=== PATIENT | male | born 1960 | race Caucasian/White ===

== ENCOUNTER 2018-01-10 13:07 | Observation (INO) | payer BC, SELFPAY ==
--- NOTE | 2018-01-10 13:51 | RAD REPORT ---
EXAM DESCRIPTION: CT - Head Brain Wo Cont - 01/10/2018 1:36 pm CLINICAL HISTORY: SYNCOPE Seizure COMPARISON: Chest Single View dated 01/10/2018 TECHNIQUE: All CT scans are performed using dose optimization technique as appropriate and may inclu de automated exposure control or mA/KV adjustment according to patient size. FINDINGS: No intracranial hemorrhage, hydrocephalus or extra-axial fluid collection.No areas of brai n edema or evidence of midline shift. The paranasal sinuses and mastoids are clear. The calvarium is intact. IMPRESSION: No acute intracranial abnormality.
--- NOTE | 2018-01-10 13:53 | RAD REPORT ---
EXAM DESCRIPTION: RAD - Chest Single View - 01/10/2018 1:41 pm CLINICAL HISTORY: syncope Chest pain. COMPARISON: No comparisons FINDINGS: Portable technique limits examination quality. The lungs are grossly clear. The heart is normal in size. No displaced fractures. IMPRESSION: No acute intrathoracic process suspected.
[2018-01-10 14:46] LABS: Absolute Lymphocytes (CBC) 0.9 K/uL (0.7-4.9); Absolute Monocytes 0.3 K/uL (0.1-1.3); Absolute Neutrophil 4.7 K/uL (1.8-8.0); Basophils % 0.3 % (0-1.3); Eosinophils % 0.7 % (0-4.4); Hematocrit 43.7 % (39.6-49.0); Lymphocytes % 15.4 % (15.3-44.8); MCH 34.1 pg (27.0-35.0); MCV 99.2 fL (80-100); MPV 7.8 fL (7.6-11.3); Monocytes % 4.3 % (3.3-12.3)
[2018-01-10 14:49] LABS: Protime INR 1.16
[2018-01-10 15:00] LABS: ALT/SGPT 50 U/L (12-78); AST/SGOT 103 U/L (15-37); Albumin 3.7 g/dL (3.4-5.0); Alkaline Phosphatase 88 U/L (45-117); BUN Blood Urea Nitrogen 5 mg/dL (7-18); Bicarbonate 27 mmol/L (21-32); Bilirubin Direct 0.3 mg/dL (0-0.2); Bilirubin Total 0.6 mg/dL (0.2-1.0); CKMB Creatine Kinase MB < 1.0 ng/mL (0.3-3.6); Creatine Phosphokinase 45 U/L (39-308); Glucose Level 109 mg/dL (74-106); NT PRO-BNP 23 pg/mL (<125); Potassium 3.2 mmol/L (3.5-5.1); Protein, Total 8.8 g/dL (6.4-8.2); Sodium Level 136 mmol/L (136-145)
--- NOTE | 2018-01-10 15:03 | RAD REPORT ---
EXAM DESCRIPTION: VAS - Extrem Venous W Compress Neno - 01/10/2018 2:17 pm CLINICAL HISTORY: SWELLING Bilateral leg edema and swelling. COMPARISON: <Comparisons> TECHNIQUE: Real-time sonographic interrogation of the left and right lower extremity deep venous sys tems was performed. FINDINGS: Normal compressibility, flow augmentation, phasic flow and spontaneous flow is identified in both the left and right lower extremity deep venous systems. IMPRESSION: No sonographic evidence of left or right lower extremity deep venous thrombosis.
[2018-01-10] MEDS ORDERED: NA CHLORIDE 0.9% 500 ML ONE (15:16)
[2018-01-10] MEDS ORDERED: CLINDAMYCIN 900MG/D5W 900 MG/50 ML BAG IV ONE (15:16)
[2018-01-10] MEDS ORDERED: POTASSIUM 25 MEQ EFFERV TAB ONE (15:16)
[2018-01-10 15:18] LABS: Urine Blood NEGATIVE (NEG); Urine Glucose NEGATIVE (NEG); Urine Protein NEGATIVE (NEG)
[2018-01-10] MEDS ORDERED: IBUPROFEN 400 MG TAB ONE (15:32)
--- NOTE | 2018-01-10 16:52 | EDPHYS ---
Physician Documentation [facility] Name: Modesto Walls Age: 57 yrs Sex: Male : 1960 Arrival Date: 01/10/2018 Time: 13:10 Bed 24 Private MD: ED Physician Montana Pond HPI: 01/10 13:39 This 57 yrs old Male presents to ER via EMS with complaints of Syncope - Seizure. snw 13:39 The patient has experienced syncope, collapsed. Onset: The symptoms/episode snw began/occurred suddenly, just prior to arrival. Duration: This was a single episode, that lasted an unknown period of time. Context: the episode(s) was witnessed, by family, sister, occurred at a relative's home, occurred while the patient was standing, Just prior to the episode the patient experienced no apparent symptoms. Associated signs and symptoms: The patient has no apparent associated signs or symptoms. Current symptoms: headache. It is unknown whether or not the patient has had similar symptoms in the past. The patient has not recently seen a physician. 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 - Social history:: Smoking status: Patient/guardian denies using tobacco. - Ebola Screening: : No symptoms or risks identified at this time. ROS: 13:39 Constitutional: Negative for fever, chills, and weight loss, Eyes: Negative for injury, snw pain, redness, and discharge, ENT: Negative for injury, pain, and discharge, Neck: Negative for injury, pain, and swelling, Cardiovascular: Negative for chest pain, palpitations, and edema, Respiratory: Negative for shortness of breath, cough, wheezing, and pleuritic chest pain, Abdomen/GI: Negative for abdominal pain, nausea, vomiting, diarrhea, and constipation, Back: Negative for injury and pain, : Negative for injury, bleeding, discharge, and swelling, MS/Extremity: Negative for injury and deformity, Skin: Negative for injury, rash, and discoloration. 13:39 Neuro: Positive for headache, seizure activity, syncope. Exam: 13:32 Constitutional: This is a well developed, well nourished patient who is awake, alert, snw and in no acute distress. Head/Face: Normocephalic, atraumatic. Eyes: Pupils equal round and reactive to light, extra-ocular motions intact. Lids and lashes normal. Conjunctiva and sclera are non-icteric and not injected. Cornea within normal limits. Periorbital areas with no swelling, redness, or edema. ENT: Nares patent. No nasal discharge, no septal abnormalities noted. Tympanic membranes are normal and external auditory canals are clear. Oropharynx with no redness, swelling, or masses, exudates, or evidence of obstruction, uvula midline. Mucous membranes moist. Neck: Trachea midline, no thyromegaly or masses palpated, and no cervical lymphadenopathy. Supple, full range of motion without nuchal rigidity, or vertebral point tenderness. No Meningismus. Chest/axilla: Normal chest wall appearance and motion. Nontender with no deformity. No lesions are appreciated. Cardiovascular: Regular rate and rhythm with a normal S1 and S2. No gallops, murmurs, or rubs. Normal PMI, no JVD. No pulse deficits. Respiratory: Lungs have equal breath sounds bilaterally, clear to auscultation and percussion. No rales, rhonchi or wheezes noted. No increased work of breathing, no retractions or nasal flaring. Abdomen/GI: Soft, non-tender, with normal bowel sounds. No distension or tympany. No guarding or rebound. No evidence of tenderness throughout. Back: No spinal tenderness. No costovertebral tenderness. Full range of motion. Neuro: Awake and alert, GCS 15, oriented to person, place, time, and situation. Cranial nerves II-XII grossly intact. Motor strength 5/5 in all extremities. Sensory grossly intact. Cerebellar exam normal. Normal gait. 13:32 Skin: Appearance: Temperature: warm, erythema to left lateral ankle, + lymphedema to bilateral lower ext. Vital Signs: 13:11 BP 113 / 74; Pulse 83; Resp 18; Temp 97.7; Pulse Ox 99% ; Weight 81.65 kg; Height 5 ft. kr2 11 in. (180.34 cm); Pain 5/10; 13:53 BP 108 / 78; Pulse 97; Resp 17; Pulse Ox 100% on R/A; kr2 15:43 BP 107 / 76; Pulse 81; Resp 17; Pulse Ox 100% on R/A; kr2 18:30 BP 114 / 87; Pulse 88; Resp 15; Pulse Ox 97% on R/A; kr2 19:35 BP 113 / 79; Pulse 80; Resp 17; Temp 97.9(O); Pulse Ox 100% on R/A; kr2 13:11 Body Mass Index 25.10 (81.65 kg, 180.34 cm) kr2 MDM: 13:11 Patient medically screened. snw 16:51 Data reviewed: vital signs, nurses notes. Data interpreted: Pulse oximetry: on room air snw is 100 %. Interpretation: normal. Counseling: I had a detailed discussion with the patient and/or guardian regarding: the historical points, exam findings, and any diagnostic results supporting the discharge/admit diagnosis, lab results, radiology results, the need for further work-up and treatment in the hospital. Physician consultation: Durga Wilson DO was called at 16:52, was contacted at 16:52, regarding admission, to the telemetry unit. and will see patient in ED. 01/10 13:13 Order name: Basic Metabolic Panel; Complete Time: 15:w 01/10 13:13 Order name: CBC with Diff; Complete Time: 14:58 w 01/10 13:13 Order name: Ckmb; Complete Time: 15:w 01/10 13:13 Order name: CPK; Complete Time: 15:w 01/10 13:13 Order name: LFT's; Complete Time: 15:w 01/10 13:13 Order name: Magnesium; Complete Time: 15:w 01/10 13:13 Order name: NT PRO-BNP; Complete Time: 15:w 01/10 13:13 Order name: PT-INR; Complete Time: 14:58 w 01/10 13:13 Order name: Ptt, Activated; Complete Time: 14:58 w 01/10 13:13 Order name: Troponin (emerg Dept Use Only); Complete Time: 14:58 [facility] 01/10 13:13 Order name: Blood Culture Adult (2) [facility] 01/10 13:13 Order name: Lactate; Complete Time: 15:02 [facility] 01/10 15:04 Order name: Urine Dipstick--Ancillary (enter results); Complete Time: 15:20 eb 01/10 16:50 Order name: Procalcitonin; Complete Time: 17:39 [facility] 01/10 13:13 Order name: XRAY Chest (1 view); Complete Time: 13:57 [facility] 01/10 13:13 Order name: EKG; Complete Time: 13:14 [facility] 01/10 13:13 Order name: CT Head Brain wo Cont; Complete Time: 13:57 [facility] 01/10 13:13 Order name: US Extremity Venous W Compression Neno; Complete Time: 15:05 [facility] 01/10 17:11 Order name: CKMB Creatine Kinase MB [facility] 01/10 17:11 Order name: CKMB Creatine Kinase MB [facility] 01/10 17:11 Order name: CONS Physician Consult [facility] 01/10 17:11 Order name: Heart Healthy [facility] 01/10 17:11 Order name: Creatine Phosphokinase [facility] 01/10 17:11 Order name: Troponin I [facility] 01/10 17:15 Order name: Diet Heart Healthy; Complete Time: 17:15 [facility] 01/10 18:32 Order name: Lactate Sepsis 2 HR Follow-up; Complete Time: 18:33 [facility] 01/10 13:13 Order name: Cardiac monitoring; Complete Time: 13:41 [facility] 01/10 13:13 Order name: EKG - Nurse/Tech; Complete Time: 13:50 [facility] 01/10 13:13 Order name: IV Saline Lock; Complete Time: 13:41 [facility] 01/10 13:13 Order name: Labs collected and sent; Complete Time: 14:34 [facility] 01/10 13:13 Order name: O2 Per Protocol; Complete Time: 13:41 [facility] 01/10 13:13 Order name: O2 Sat Monitoring; Complete Time: 13:41 [facility] 01/10 13:13 Order name: Urine Dipstick-Ancillary (obtain specimen); Complete Time: 15:27 snw Administered Medications: 15:25 Drug: Clindamycin 900 mg Route: IVPB; Infused Over: 30 mins; Site: left antecubital; kr2 16:00 Follow up: Response: No adverse reaction; IV Status: Completed infusion kr2 15:26 Drug: NS 0.9% 500 ml Route: IV; Rate: bolus; Site: left antecubital; kr2 16:30 Follow up: Response: No adverse reaction; IV Status: Completed infusion kr2 15:27 Drug: K-Lyte Effervescent Tablet 50 mEq Route: PO; kr2 19:47 Follow up: Response: No adverse reaction kr2 15:30 Drug: Motrin 400 mg Route: PO; kr2 19:47 Follow up: Response: No adverse reaction; Pain is decreased kr2 Point of Care Testing: Blood Glucose: 14:15 Blood Glucose: 105 mg/dL; kr2 Ranges: Critical Glucose Levels:Adult <50 mg/dl or >400 mg/dl <40 mg/dl or >180 mg/dl Disposition: 01/11 07:11 Co-signature as Attending Physician, Montana Pond MD I agree with the assessment and kdr plan of care. Disposition: 01/10/18 16:51 Hospitalization ordered by Durga Wilson for Observation. Preliminary diagnosis are Cellulitis of right lower limb, Syncope and collapse, Hypokalemia. - Bed requested for Telemetry/MedSurg (observation). - Status is Observation. kr2 - Condition is Stable. - Problem is an acute exacerbation. - Symptoms have improved. UTI on Admission? No Signatures: Dispatcher [employer] EDMS Montana Pond MD MD [facility] Kady Nicolas, OIL DRILLER-C OIL DRILLER-CsnChery Oropeza RN RN sean2 Tran Lopez Corrections: (The following items were deleted from the chart) 01/10 18:31 16:51 Hospitalization Ordered by Durga Wilson DO for Observation. Preliminary eb diagnosis is Cellulitis of right lower limb; Syncope and collapse; Hypokalemia. Bed requested for Telemetry/MedSurg (observation). Status is Observation. Condition is Stable. Problem is an acute exacerbation. Symptoms have improved. UTI on Admission? No. snw 19:52 18:31 01/10/2018 16:51 Hospitalization Ordered by Durga Wilson DO for Observation. kr2 Preliminary diagnosis is Cellulitis of right lower limb; Syncope and collapse; Hypokalemia. Bed requested for Telemetry/MedSurg (observation). Status is Observation. Condition is Stable. Problem is an acute exacerbation. Symptoms have improved. UTI on Admission? No. eb
--- NOTE | 2018-01-10 16:52 | ER ---
Nurse's Notes [facility] Name: Modesto Walls Age: 57 yrs Sex: Male : 1960 Arrival Date: 01/10/2018 Time: 13:10 Bed 24 Private MD: Diagnosis: Cellulitis of right lower limb;Syncope and collapse;Hypokalemia Presentation: 01/10 13:11 Presenting complaint: EMS states: patient was at his sister's store when he had a kr2 syncopal episode and started having a seizure. By the time we got there he was A\T\Ox4 but his blood pressure dropped to 60/40. We started and IV and fluids and his blood pressure came up to 90/50. He had a fall 1 week ago, hit his head, had a CT at the hospital, he does have a hematoma from that fall. His sister reports she caught him before he hit his head this time. Transition of care: patient was not received from another setting of care. Onset of symptoms was January 10, 2018. Risk Assessment: Do you want to hurt yourself or someone else? Patient reports no desire to harm self or others. Initial Sepsis Screen: Does the patient meet any 2 criteria? No. Patient's initial sepsis screen is negative. Does the patient have a suspected source of infection? No. Patient's initial sepsis screen is negative. Care prior to arrival: Medication(s) given: Normal saline infusion, 800mL IV initiated. 20 GA, in the left antecubital area, Glucose check: 109. 13:11 Method Of Arrival: EMS: [facility] kr2 13:11 Acuity: DEEJAY 3 kr2 13:38 Presenting complaint: Sister reports patient was sitting on a stool, began having a kr2 seizure, passed out and she caught him before he hit the floor. Triage Assessment: 13:24 General: Appears in no apparent distress. comfortable, well groomed, well developed, kr2 well nourished, Behavior is calm, cooperative, appropriate for age. Pain: Complains of pain in back of head Pain does not radiate. Pain currently is 5 out of 10 on a pain scale. Quality of pain is described as aching, tender, Pain began 1 week ago Is continuous, Alleviated by medications, rest. Neuro: Level of Consciousness is awake, alert, obeys commands, Oriented to person, place, time, situation, Appropriate for age Trust Officer are equal bilaterally Moves all extremities. Speech is normal, Facial symmetry appears normal, Pupils are PERRLA, Intact Reports headache occipital area, since 1 week ago, following a similar episode today, seizure and fall. 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 - Social history:: Smoking status: Patient/guardian denies using tobacco. - Ebola Screening: : No symptoms or risks identified at this time. Screenin:24 Abuse screen: Denies threats or abuse. Denies injuries from another. Nutritional kr2 screening: No deficits noted. Tuberculosis screening: No symptoms or risk factors identified. Fall Risk Fall in past 12 months (25 points). IV access (20 points). Assessment: 13:29 General: Appears in no apparent distress. comfortable, slender, well groomed, well kr2 developed, well nourished, Behavior is calm, cooperative, appropriate for age, Smells of alcohol. Neuro: Level of Consciousness is awake, alert, obeys commands, Oriented to person, place, time, situation, Appropriate for age. Cardiovascular: Edema is 2+ to left foot, left toes, right foot and right toes Patient reports he has lymphadema Rhythm is regular. Respiratory: Airway is patent Respiratory effort is even, unlabored, Respiratory pattern is regular, symmetrical. GI: Abdomen is flat, non-distended, Patient currently denies nausea, vomiting, history of seizures. : Denies burning with urination. EENT: Oral mucosa is moist. Derm: Skin is healthy with good turgor, Skin is pink, warm \T\ dry. Erythema to right ankle. Patient has a scab there, reports he thought he had been bitten by a mosquito, the area got infected and he was treated in the hospital approximately one month ago. Musculoskeletal: Circulation, motion, and sensation intact. 13:29 Reassessment: Patient reports he has prescriptions for Tylenol 3 and [place] 10 but does kr2 not take them. 13:32 Reassessment: Patient taken to CT. kr2 13:42 Reassessment: Patient back from CT at this time. kr2 13:52 Reassessment: x ray technologist in room at this time. kr2 15:30 Reassessment: Patient appears in no apparent distress at this time. Patient and/or kr2 family updated on plan of care and expected duration. Pain level reassessed. Patient is alert, oriented x 3, equal unlabored respirations, skin warm/dry/pink. Patient complaining of headache, provider notified. 15:42 Reassessment: Patient appears in no apparent distress at this time. Patient and/or kr2 family updated on plan of care and expected duration. Pain level reassessed. Patient is alert, oriented x 3, equal unlabored respirations, skin warm/dry/pink. Patient has been medicated as ordered for pain, see MAR. 17:00 Reassessment: Patient appears in no apparent distress at this time. Patient and/or kr2 family updated on plan of care and expected duration. Pain level reassessed. Patient is alert, oriented x 3, equal unlabored respirations, skin warm/dry/pink. Patient states symptoms have improved. 18:30 Reassessment: Patient appears in no apparent distress at this time. Patient and/or kr2 family updated on plan of care and expected duration. Pain level reassessed. Patient is alert, oriented x 3, equal unlabored respirations, skin warm/dry/pink. Patient states feeling better. 19:33 Reassessment: Patient appears in no apparent distress at this time. Patient and/or kr2 family updated on plan of care and expected duration. Pain level reassessed. Patient is alert, oriented x 3, equal unlabored respirations, skin warm/dry/pink. Patient given ordered food tray Patient states feeling better. Vital Signs: 13:11 BP 113 / 74; Pulse 83; Resp 18; Temp 97.7; Pulse Ox 99% ; Weight 81.65 kg; Height 5 ft. kr2 11 in. (180.34 cm); Pain 5/10; 13:53 BP 108 / 78; Pulse 97; Resp 17; Pulse Ox 100% on R/A; kr2 15:43 BP 107 / 76; Pulse 81; Resp 17; Pulse Ox 100% on R/A; kr2 18:30 BP 114 / 87; Pulse 88; Resp 15; Pulse Ox 97% on R/A; kr2 19:35 BP 113 / 79; Pulse 80; Resp 17; Temp 97.9(O); Pulse Ox 100% on R/A; kr2 13:11 Body Mass Index 25.10 (81.65 kg, 180.34 cm) kr2 ED Course: 13:10 Patient arrived in ED. kr2 13:11 Kady Nicolas F[facility]-C is [facility]. snw 13:11 [place] Pond MD is Attending Physician. snw 13:11 Patient has correct armband on for positive identification. Placed in gown. Bed in low kr2 position. Call light in reach. Side rails up X2. Seizure precautions initiated. secured entrance monitor on. Pulse ox on. NIBP on. Door closed. Lights dimmed. Warm blanket given. Head of bed elevated. 13:11 Maintain EMS IV. Dressing intact. Good blood return noted. Site clean \T\ dry. Gauge \T\ kr 2 site: 20g LAC. Flushed left antecubital with 5 ml normal saline. 13:15 Triage completed. kr2 13:28 Arm band placed on. kr2 13:36 CT completed. Patient moved to CT via stretcher. Patient moved back from CT. cw1 13:37 CT Head Brain wo Cont In Process Unspecified. EDMS 13:37 X-ray completed. Portable x-ray completed in exam room. Patient tolerated procedure la2 well. 13:41 XRAY Chest (1 view) In Process Unspecified. EDMS 13:43 Radiology exam delayed due to with CT. sg3 13:47 Ultrasound completed. Patient tolerated well. sg3 13:50 EKG done, by ED staff, reviewed by Kady FITZGERALD. cb2 13:52 Chery Pierre RN is Primary Nurse. kr2 14:33 Initial lab(s) drawn, by or, sent to lab. Inserted saline lock: 20 gauge in right cb2 antecubital area, using aseptic technique. Blood collected. 16:51 Durga Wilson DO is Hospitalizing Provider. snw 19:48 No provider procedures requiring assistance completed. Patient admitted, IV remains in kr2 place. Administered Medications: 15:25 Drug: Clindamycin 900 mg Route: IVPB; Infused Over: 30 mins; Site: left antecubital; kr2 16:00 Follow up: Response: No adverse reaction; IV Status: Completed infusion kr2 15:26 Drug: NS 0.9% 500 ml Route: IV; Rate: bolus; Site: left antecubital; kr2 16:30 Follow up: Response: No adverse reaction; IV Status: Completed infusion kr2 15:27 Drug: K-Lyte Effervescent Tablet 50 mEq Route: PO; kr2 19:47 Follow up: Response: No adverse reaction kr2 15:30 Drug: Motrin 400 mg Route: PO; kr2 19:47 Follow up: Response: No adverse reaction; Pain is decreased kr2 Point of Care Testing: Blood Glucose: 14:15 Blood Glucose: 105 mg/dL; kr2 Ranges: Outcome: 16:51 Decision to Hospitalize by Provider. snw 19:48 Admitted to Tele accompanied by tech, family with patient, via stretcher, room 403, kr2 with chart, Report called to RAVI Vargas 19:48 Condition: good 19:48 Instructed on the need for admit, Demonstrated understanding of instructions. 19:52 Patient left the ED. kr2 Signatures: Dispatcher [employer] Kady Montero, [employer] B[employer] VAULT CLERK-Shae Duval cw1 Milad Hartley Leslie la2 Chery Pierre RN RN kr2 Jesusita Melvin sg3 Corrections: (The following items were deleted from the chart) 13:39 13:11 Care prior to arrival: Medication(s) given: Normal saline infusion, 500 mL, IV kr2 initiated. 20 GA, in the left antecubital area, Glucose check: 109 kr2 13:40 13:24 Pain: Complains of pain in back of head Pain does not radiate. Pain currently is kr2 4 out of 10 on a pain scale. Quality of pain is described as aching, tender, Pain began 1 week ago Is continuous, Alleviated by medications, rest, kr2 13:45 13:29 Cardiovascular: Rhythm is regular kr2 kr2 14:17 14:17 In radiology for Extrem Venous W Compression Neno+US.RAD.BRZ. EDMS sg3 15: 13:29 Derm: Skin is intact, is healthy with good turgor, Skin is pink, warm \T\ dry. kr2 kr2 15:42 13:29 Musculoskeletal: Circulation, motion, and sensation intact. kr2 kr2 19:51 19:35 BP 113 / 79; Pulse 80bpm; Resp 17bpm; Pulse Ox 100% RA; kr2 kr2
[2018-01-10] MEDS ORDERED: ACETAMINOPHEN 650MG/RECT SUPP PR PRN (17:05)
[2018-01-10] MEDS ORDERED: ONDANSETRON 4 MG/2 ML VIAL IV PRN (17:05)
[2018-01-10] MEDS ORDERED: ACETAMINOPHEN 500 MG TAB PO PRN (17:05)
[2018-01-10] MEDS ORDERED: CODEINE 30MG/APAP 300MG TAB PO PRN (17:07)
--- NOTE | 2018-01-10 17:17 | P.HP ---
Certification for Inpatient Patient admitted to: Observation With expected LOS: <2 Midnights Patient will require the following post-hospital care: None Practitioner: I am a practitioner with admitting privileges, knowledge of patient current condition, hospital course, and medical plan of care. Services: Services provided to patient in accordance with Admission requirements found in Title 42 Section 412.3 of the Code of Federal Regulations Patient History Date of Service: 01/10/18 Primary Care Provider: Walter Armijo(Visiting) Reason for admission: Syncope History of Present Illness: 57-year-old male presented emergency room with a syncopal episode. Patient is visiting in the area. He is originally from [place]. He is visiting his sister. Patient reports that he fell about a week ago. He apparently had a syncopal episode at that time. He hit his head. He was evaluated at a hospital in [place]. Patient found to have a right lower extremity cellulitis is well. Patient was treated and evaluated. He was to follow up with cardiology this week. Today the patient was sitting at home with his sister. He apparently had a syncopal episode. During this time the patient does not recall the event. Sister was present and helped some to the floor. Sister reported that he started to shake for about 1.5 min. He was more of a jerking sensation to the upper extremity. This resolved. EMS was called. He was found to have blood pressure of 70/40. He was given IV fluids. This improved with a blood pressure of 90/50. Patient with history of lymphedema, GERD, alcohol use and hypertension. Patient has been using Lasix 40 mg daily, BenicarHCT 40 mg/25 mg daily. In the ER patient was evaluated. Initial blood pressure in the ER was 113/74. He is without any distress. He denied any chest pain, shortness of breath. Initial workup included venous Dopplers of the lower extremity which showed no DVT. Chest x-ray unremarkable. CT of the head unremarkable. CBC unremarkable. Lactic acid slightly elevated at 2.7. Sodium 136, potassium 3.2 , creatinine 0.90 with a blood sugar 109. Due to nature of his symptoms the patient was admitted for observation. When I evaluated the patient in the ER, he admits to drinking about 2-3 beers a day. He is compliant with his blood pressure medication. He has been feeling weak over the past several weeks. He is also taking pain medication Tylenol #3. Home medications list reviewed: Yes - Past Medical/Surgical History Diabetic: No -: Hypertension -: Lymphedema -: GERD -: Alcohol use -: Left ankle surgery Psychosocial/ Personal History: The patient is . He lives in [place]. He has 3 children. - Family History Family History: Reviewed- Non-Contributory - Social History Smoking Status: Never smoker Alcohol use: Yes Caffeine use: No Place of Residence: Home Review of Systems General: Weakness, Malaise Eyes: Unremarkable ENT: Unremarkable Respiratory: As per HPI Cardiovascular: Unremarkable Gastrointestinal: Unremarkable Genitourinary: Unremarkable Musculoskeletal: Unremarkable Integumentary: As per HPI Neurological: Weakness, As per HPI Lymphatics: Unremarkable Physical Examination - Physical Exam General: Alert, In no apparent distress, Oriented x3, Cooperative HEENT: Atraumatic, Normocephalic, Mucous membr. moist/pink, Other (Patient reports some pain to the top of his head.) Neck: Supple Respiratory: Clear to auscultation bilaterally, Normal air movement Cardiovascular: Normal pulses, Regular rate/rhythm Gastrointestinal: Normal bowel sounds, Soft and benign, Non-distended, No tenderness, No masses, No rebound, No guarding Musculoskeletal: No tenderness, No warmth Integumentary: Other (Healing wound to the right lower extremity just above the knee. No significant erythema, pain extremities noted bilateral just above the ankle region.) Neurological: Normal speech, Normal strength at 5/5 x4 extr, Normal tone, Normal affect - Studies Laboratory Data (last 24 hrs) 01/10/18 14:15: PT 13.7 H, INR 1.16, APTT 34.1 01/10/18 14:15: WBC 6.0, Hgb 15.0, Hct 43.7, Plt Count 187 01/10/18 14:15: Sodium 136, Potassium 3.2 L, BUN 5 L, Creatinine 0.90, Glucose 109 H, Magnesium 2.0, Total Bilirubin 0.6, AST 103 H, ALT 50, Alkaline Phosphatase 88 Assessment and Plan - Problems (Diagnosis) (1) Syncope Current Visit: Yes Status: Acute Plan: Syncope likely from volume depletion. Patient recently taking Lasix 40 mg daily and Benicar HCT 40/25 mg. Patient was initially hypotensive. Patient given IV fluids in the field. Blood pressure stable in the emergency room. Initial workup unremarkable. Will continue with IV fluids. Adjustments in medication may be required. Will order EEG to evaluate for possible seizure disorder. There is no history of this. Will also order echocardiogram, carotid Doppler. Cardiology consulted to further evaluate. Patient lives in [place]. Will consider workup in [place] as he is to see a poultry farm manager here soon. Anticipate discharge tomorrow if okay with cardiology with adjustments in medication. Qualifiers: Syncope type: vasovagal syncope Qualified Code(s): R55 - Syncope and collapse (2) Hypotension Current Visit: Yes Status: Acute Plan: Likely from medication. Continue as above. Will start IV fluids. Qualifiers: Hypotension type: orthostatic hypotension Qualified Code(s): I95.1 - Orthostatic hypotension (3) Hypertension Current Visit: Yes Status: Chronic Plan: We will hold blood pressure medication at this time. Will make adjustments medication. Qualifiers: Hypertension type: essential hypertension Qualified Code(s): I10 - Essential (primary) hypertension (4) Lymphedema Current Visit: Yes Status: Chronic Plan: Patient with chronic lymphedema. Continue as above. This can be further evaluated as an outpatient. (5) Cellulitis Current Visit: Yes Status: Chronic Plan: Patient recently hospitalized for cellulitis 1 week ago. This has improved. Will continue with clindamycin. Patient has follow up with PCP later this week. Qualifiers: Site of cellulitis: extremity Site of cellulitis of extremity: lower extremity Laterality: right Qualified Code(s): L03.115 - Cellulitis of right lower limb (6) GERD (gastroesophageal reflux disease) Current Visit: Yes Status: Chronic Plan: Continue PPI Qualifiers: Esophagitis presence: esophagitis presence not specified Qualified Code(s) : K21.9 - Gastro-esophageal reflux disease without esophagitis (7) Alcohol use Current Visit: Yes Status: Chronic Plan: Alcohol cessation addressed in detail. (8) Chronic pain Current Visit: Yes Status: Chronic Plan: Patient is using Tylenol #3 for chronic pain. We need to limit use of medication. (9) Elevated liver function tests Current Visit: Yes Status: Acute Plan: Slight elevation in AST. Likely from alcohol abuse. Will send for hepatitis panel Discharge Plan: Home Plan to discharge in: 24 Hours - Advance Directives Does patient have a Living Will: No Does patient have a Durable POA for Healthcare: No - Code Status/Comfort Care Code Status Assessed: Yes Time Spent Managing Pts Care (In Minutes): 55
[2018-01-10] MEDS: MUPIROCIN 2% OINT 22GM TUBE TOP SCH (21:00)
[2018-01-10] MEDS: NA CHLORIDE 0.9% 1,000 ML IV SCH (22:24)
[2018-01-10] MEDS: CLINDAMYCIN HCL 150 MG CAP PO SCH (22:25)
[2018-01-10 22:45] LABS: CKMB Creatine Kinase MB < 1.0 ng/mL (0.3-3.6); Creatine Phosphokinase 34 U/L (39-308)
[2018-01-11] MEDS: NA CHLORIDE 0.9% 1,000 ML IV SCH (05:48)
[2018-01-11 06:19] LABS: Absolute Lymphocytes (CBC) 0.9 K/uL (0.7-4.9); Absolute Monocytes 0.5 K/uL (0.1-1.3); Absolute Neutrophil 2.5 K/uL (1.8-8.0); Basophils % 0.7 % (0-1.3); Eosinophils % 1.8 % (0-4.4); Hematocrit 36.5 % (39.6-49.0); Lymphocytes % 23.5 % (15.3-44.8); MCH 34.7 pg (27.0-35.0); MCV 98.9 fL (80-100); Monocytes % 11.9 % (3.3-12.3); RBC Red Blood Cell Count 3.69 M/uL (4.33-5.43)
[2018-01-11] MEDS ORDERED: PANTOPRAZOLE 40MG TABLET PO SCH (06:30)
[2018-01-11 06:39] LABS: ALT/SGPT 38 U/L (12-78); AST/SGOT 74 U/L (15-37); Albumin 2.7 g/dL (3.4-5.0); Alkaline Phosphatase 77 U/L (45-117); BUN Blood Urea Nitrogen 6 mg/dL (7-18); Bicarbonate 29 mmol/L (21-32); Bilirubin Total 0.7 mg/dL (0.2-1.0); CKMB Creatine Kinase MB < 1.0 ng/mL (0.3-3.6); Glucose Level 90 mg/dL (74-106); HDL Cholesterol 43 mg/dL (40-60); LDL Cholesterol, Calculated 66 (<130); Magnesium 1.7 mg/dL (1.8-2.4); Protein, Total 6.7 g/dL (6.4-8.2); Sodium Level 139 mmol/L (136-145)
[2018-01-11] MEDS ORDERED: MAGNESIUM SULFATE 1 gm IVPB 1 GM/100 ML BAG IV ONE (06:45)
[2018-01-11] MEDS ORDERED: ENOXAPARIN 40 MG/0.4 ML SQ SCH (09:00)
[2018-01-11] MEDS ORDERED: ASPIRIN EC 81 MG TAB PO SCH (09:00)
[2018-01-11] MEDS: MUPIROCIN 2% OINT 22GM TUBE TOP SCH (09:00)
--- NOTE | 2018-01-11 09:22 | P.DS ---
Admission Date: 01/10/18 Discharge Date: 01/11/18 Primary Care Provider: [place](Visiting) Disposition: ROUTINE DISCHARGE Discharge Condition: GOOD Reason for Admission: Syncope Procedures: CT head: No acute changes otherwise unremarkable. Venous Doppler lower extremity: No DVT noted. Chest x-ray: Unremarkable. - Problems (1) Syncope Current Visit: Yes Status: Suspected Qualifiers: Syncope type: vasovagal syncope Qualified Code(s): R55 - Syncope and collapse (2) Hypotension Current Visit: Yes Status: Resolved Qualifiers: Hypotension type: orthostatic hypotension Qualified Code(s): I95.1 - Orthostatic hypotension (3) Hypertension Current Visit: Yes Status: Chronic Qualifiers: Hypertension type: essential hypertension Qualified Code(s): I10 - Essential (primary) hypertension (4) Lymphedema Current Visit: Yes Status: Chronic (5) Cellulitis Current Visit: Yes Status: Chronic Qualifiers: Site of cellulitis: extremity Site of cellulitis of extremity: lower extremity Laterality: right Qualified Code(s): L03.115 - Cellulitis of right lower limb (6) GERD (gastroesophageal reflux disease) Current Visit: Yes Status: Chronic Qualifiers: Esophagitis presence: esophagitis presence not specified Qualified Code(s) : K21.9 - Gastro-esophageal reflux disease without esophagitis (7) Alcohol use Current Visit: Yes Status: Chronic (8) Chronic pain Current Visit: Yes Status: Chronic Qualifiers: Chronic pain type: chronic pain syndrome Qualified Code(s): G89.4 - Chronic pain syndrome (9) Elevated liver function tests Current Visit: Yes Status: Acute Brief History of Present Illness: 57-year-old male presented emergency room with a syncopal episode. Patient is visiting in the area. He is originally from [place]. He is visiting his sister. Patient reports that he fell about a week ago. He apparently had a syncopal episode at that time. He hit his head. He was evaluated at a hospital in [place]. Patient found to have a right lower extremity cellulitis is well. Patient was treated and evaluated. He was to follow up with cardiology this week. Today the patient was sitting at home with his sister. He apparently had a syncopal episode. During this time the patient does not recall the event. Sister was present and helped some to the floor. Sister reported that he started to shake for about 1.5 min. He was more of a jerking sensation to the upper extremity. This resolved. EMS was called. He was found to have blood pressure of 70/40. He was given IV fluids. This improved with a blood pressure of 90/50. Patient with history of lymphedema, GERD, alcohol use and hypertension. Patient has been using Lasix 40 mg daily, BenicarHCT 40 mg/25 mg daily. In the ER patient was evaluated. Initial blood pressure in the ER was 113/74. He is without any distress. He denied any chest pain, shortness of breath. Initial workup included venous Dopplers of the lower extremity which showed no DVT. Chest x-ray unremarkable. CT of the head unremarkable. CBC unremarkable. Lactic acid slightly elevated at 2.7. Sodium 136, potassium 3.2 , creatinine 0.90 with a blood sugar 109. Due to nature of his symptoms the patient was admitted for observation. When I evaluated the patient in the ER, he admits to drinking about 2-3 beers a day. He is compliant with his blood pressure medication. He has been feeling weak over the past several weeks. He is also taking pain medication Tylenol #3. Hospital Course: The patient did well in the course of his stay. Patient presented with syncopal episode likely from medication and dehydration. Patient has hypertension and lymphedema. He was recently hospitalized for cellulitis in [place]. He previously had a syncopal episode recently and was to see cardiology next week in [place]. Patient had hypotension prior to coming in to the hospital. This is likely related to dehydration and medication-Lasix, Benicar HCT. He reports that his blood pressures have been low. Patient was admitted for observation. Patient previously taking Lasix 40 mg daily and Benicar HCT. Both medications were held during his stay. Blood pressure stable off medication. Edema to the lower extremity improved with hydration. CT of the head showed no acute changes or abnormality. Venous Doppler of the lower extremity showed no DVT. At discharge he is without any syncopal episode. No headaches, dizziness, chest pain or shortness of breath. At discharge Benicar HCT has been discontinued. Patient may continue with Lasix 20 mg 1 pill daily as needed for significant edema to the lower extremity. He may continue with a 2000 cc per day fluid restriction and low-salt diet for his lymphedema. Recommendations for the patient to follow up with PCP in 1 week. He is to see Cardiology in [place] this week recommendation is to check echocardiogram. He is to continue to monitor his blood pressures daily. If his blood pressure remains elevated above 140/90. The patient may require medication. I will recommend carvedilol. The patient has mild cellulitis to the right lower extremity. This is significantly improved. Patient recently hospitalized for cellulitis. At discharge he will continue with clindamycin 300 mg 1 pill 3 times a day for 5 more days. He will continue to clean the area with antibacterial soap and water. He may place Bactroban ointment to the area. Patient has lymphedema. Patient will continue with a 2000 cc per day fluid restriction and low-salt diet. He is to elevate his legs when sitting or lying. Patient may continue with Lasix 20 mg once daily if with significant edema to the lower extremity. This can be further addressed by cardiology as an outpatient. Patient has chronic pain. Patient may continue with Tylenol #3 as needed for pain. He is to limit his pain medication. Patient has GERD. Patient may continue with Protonix 40 mg 1 pill once daily. Recommendations for the patient follow up with GI as an outpatient to further assess. Patient reports alcohol use. Alcohol cessation addressed in detail especially in light of lymphedema and hypertension. Patient had mild elevation to liver function tests likely related to alcohol use. Hepatitis panel obtained. This can be followed up by his PCP. Vital Signs/Physical Exam: Temp Pulse Resp BP Pulse Ox 98.1 F 88 18 125/79 99 01/11/18 08:00 01/11/18 08:00 01/11/18 08:00 01/11/18 08:00 01/11/18 08:00 General: Alert, In no apparent distress, Oriented x3, Cooperative HEENT: Atraumatic Neck: Supple Respiratory: Clear to auscultation bilaterally, Normal air movement Cardiovascular: Normal pulses, Regular rate/rhythm Gastrointestinal: Normal bowel sounds, Soft and benign, Non-distended, No tenderness, No masses, No rebound, No guarding Musculoskeletal: No erythema, No tenderness, No warmth Integumentary: No erythema, No warmth, No cyanosis, Other (Mild edema to the lower extremity that significantly improved. Less erythema noted to the right ankle region or he had cellulitis. This has almost resolved.) Neurological: Normal speech, Normal strength at 5/5 x4 extr, Normal tone, Normal affect Laboratory Data at Discharge: WBC 4.0 K/uL (4.3-10.9) L D 01/11/18 05:36 Hgb 12.8 g/dL (13.6-17.9) L 01/11/18 05:36 Hct 36.5 % (39.6-49.0) L D 01/11/18 05:36 Plt Count 128 K/uL (152-406) L D 01/11/18 05:36 PT 13.7 SECONDS (9.5-12.5) H 01/10/18 14:15 INR 1.16 01/10/18 14:15 APTT 34.1 SECONDS (24.3-36.9) 01/10/18 14:15 Sodium 139 mmol/L (136-145) 01/11/18 05:36 Potassium 4.0 mmol/L (3.5-5.1) 01/11/18 05:36 BUN 6 mg/dL (7-18) L 01/11/18 05:36 Creatinine 0.70 mg/dL (0.55-1.3) 01/11/18 05:36 Glucose 90 mg/dL (74-106) 01/11/18 05:36 Magnesium 1.7 mg/dL (1.8-2.4) L 01/11/18 05:36 Total Bilirubin 0.7 mg/dL (0.2-1.0) 01/11/18 05:36 AST 74 U/L (15-37) H 01/11/18 05:36 ALT 38 U/L (12-78) 01/11/18 05:36 Alkaline Phosphatase 77 U/L (45-117) 01/11/18 05:36 Troponin I < 0.02 ng/mL (0.0-0.045) 01/11/18 05:36 Triglycerides 64 mg/dL (<150) 01/11/18 05:36 Cholesterol 122 mg/dL (<200) 01/11/18 05:36 HDL Cholesterol 43 mg/dL (40-60) 01/11/18 05:36 Cholesterol/HDL Ratio 2.84 01/11/18 05:36 Home Medications: Codeine/APAP [Tylenol #3*] 1 tab PO Q6HP PRN 01/10/18 Aspirin [Aspirin EC 81 MG] 81 mg PO DAILY #90 tablet. 01/11/18 Furosemide [Lasix] 20 mg PO DAILY PRN #30 tab 01/11/18 Mupirocin Oint [Bactroban 2% Ointment*] 1 appl TOP BID #1 tube 01/11/18 Pantoprazole [Protonix Tab*] 40 mg PO DAILYAC #30 tab 01/11/18 New Medications: Aspirin [Aspirin EC 81 MG] 81 mg PO DAILY #90 tablet. Furosemide [Lasix] 20 mg PO DAILY PRN #30 tab PRN Reason: Shortness Of Breath Mupirocin Oint [Bactroban 2% Ointment*] 1 appl TOP BID #1 tube Pantoprazole [Protonix Tab*] 40 mg PO DAILYAC #30 tab Patient Discharge Instructions: 1. Patient will need to follow up his PCP in 1 week to follow up this hospitalization. 2. Patient presented with syncopal episode likely from medication-Lasix/Benicar HCT and dehydration. Patient has hypertension and lymphedema. Patient improved with IV fluid hydration and discontinuation of medication. Blood pressure stable off medication. Edema to the lower extremity improved with hydration. CT of the head showed no acute changes or abnormality. Venous Doppler of the lower extremity showed no DVT. At discharge Benicar HCT has been discontinued. Patient may continue with Lasix 20 mg 1 pill daily as needed for significant edema to the lower extremity. He may continue with a 2000 cc per day fluid restriction and low- salt diet for his lymphedema. Recommendations for the patient to follow up with PCP in 1 week. He is to see Cardiology in [place] this week recommendation is to check echocardiogram and follow up this hospitalization. He is to continue to monitor his blood pressures daily. If his blood pressure remains elevated above 140/90, medication may be required. He can follow up with his PCP to further address. 3. The patient has mild cellulitis to the right lower extremity. This is significantly improved. Patient recently hospitalized for cellulitis. At discharge he will continue with clindamycin 300 mg 1 pill 3 times a day for 5 more days. He will continue to clean the area with antibacterial soap and water. He may place Bactroban ointment to the area. 4. Patient has lymphedema. Patient will continue with a 2000 cc per day fluid restriction and low-salt diet. He is to elevate his legs when sitting or lying. Patient may continue with Lasix 20 mg once daily if with significant edema to the lower extremity. This can be further addressed by cardiology as an outpatient. 5. Patient has chronic pain. Patient may continue with Tylenol #3 as needed for pain. He is to limit his pain medication. 6. Patient has GERD. Patient may continue with Protonix 40 mg 1 pill once daily. Recommendations for the patient follow up with GI as an outpatient to further assess. 7. Alcohol cessation education will be provided. 8. Patient had elevated liver function tests likely related to alcohol use. Alcohol cessation recommended. Lab obtained. His PCP will need to follow up on hepatitis panel. Diet: AHA Activity: Fall precautions Time spent managing pt's care (in minutes): 55
--- NOTE | 2018-01-11 09:33 | EKG ---
Test Date: 2018-01-10 Test Time: 13:47:29 Process Controls Technician: RALPH MEASUREMENT RESULTS: Intervals: Rate: 77 [place]: 148 QRSD: 110 QT: 372 QTc: 420 [place]: P: 61 [place]: 148 QRS: -40 T: 48 INTERPRETIVE STATEMENTS: Normal sinus rhythm Left axis deviation Abnormal ECG No previous ECG available for comparison Electronically Signed On 01-11-18 09:32:53 CDT by Arjun Francisco
[2018-01-11] MEDS: CLINDAMYCIN HCL 150 MG CAP PO SCH (09:36)
--- NOTE | 2018-01-11 15:23 | RAD REPORT ---
EXAM DESCRIPTION: ANGELES Gilman CP - 01/11/2018 1:44 pm CLINICAL HISTORY: Syncope COMPARISON: None. TECHNIQUE: Real-time sonographic evaluation of both carotid systems was performed. Grayscale and Dop pler Doppler interrogation was performed with waveform tracing bilaterally. FINDINGS: Normal high resistance waveforms are noted in both external carotid arteries. The common c arotid arteries and internal carotid arteries show normal low resistance waveforms. Calcified and noncalcified plaquing changes are present. Peak systolic and end diastolic velocity jordi ues and the ICA/CCA ratios are in the non-hemodynamically significant range. Common carotid velocity values are 84 cm/second on the right and 82 cm/second on the left. Right-side ICA velocity values ran ge from 50-61 cm/second. Left ICA velocities range from 48-53 cm/second. ICA/CCA ratios are 0.7 on th e right and 0.6 on the left. Antegrade flow seen in both vertebral arteries. Velocity values and ratios were recorded and are retained in the patient's imaging records. IMPRESSION: Calcified and noncalcified plaquing changes are present. On visual inspection no signifi cant luminal narrowing. Velocity values and ratios indicate no significant stenosis.
[2018-01-13 18:06] LABS: HBsAG Nonreactive (Nonreactive); Hepatitis A IgM Antibody Nonreactive
== END 2018-01-11 14:10 | disposition home or self-care (01) ==
LOC: ER 13:07 → ERHOLD 17:28 → 4TH 19:37
PROVIDERS: ADMIT Family Medicine; ATTEND Family Medicine
DX: R55 Syncope and collapse (principal); I95.9 Hypotension, unspecified; L03.115 Cellulitis of right lower limb; I89.0 Lymphedema, not elsewhere classified; I10 Essential (primary) hypertension; K21.9 Gastro-esophageal reflux disease without esophagitis; Z72.89 Other problems related to lifestyle; G89.29 Other chronic pain; R79.89 Other specified abnormal findings of blood chemistry
CPT/HCPCS: 36415; 70450; 71045; 80048; 80053; 80061; 80074; 80076; 81003; 82550; 82553; 82962; 83605; 83735; 83880; 84145; 84439; 84443; 84484; 85025; 85610; 85730; 87040; 93005; 93880; 93970; 96365; 99285; G0378; J1650; J3475; J7030